=== PATIENT | female | born 1985 | race Hispanic/Latino ===

== ENCOUNTER 2017-04-24 09:11 | Emergency (ER) | payer BC, OTHER ==
[2017-04-24 09:11] VITALS: BMI 27.0
[2017-04-24 09:26] VITALS: TEMP 98.6; O2SAT 100
[2017-04-24 09:46] VITALS: BP 121/81; RESP 19
[2017-04-24] MEDS ORDERED: Sodium Chloride 0.9% 1,000 ML IV STA (10:25)
[2017-04-24 10:48] LABS: BASO # 0.1 K/uL (0.0-0.2); EOS # 0.2 K/uL (0.0-0.7); EOS % 2.7 % (0.0-4.0); HEMATOCRIT 39.9 % (34.0-47.0); LYMPH # 2.8 K/uL (1.0-4.3); LYMPH % 32.9 % (20.0-40.0); MEAN CELL VOLUME 95.4 fl (81.0-99.0); MEAN CORPUSCULAR HEMOGLOBIN 32.4 pg (27.0-31.0); MEAN CORPUSCULAR HGB CONC 33.9 g/dL (33.0-37.0); MEAN PLATELET VOLUME 7.9 fl (7.2-11.7); MONO # 0.8 K/uL (0.0-0.8); MONO % 9.3 % (0.0-10.0); NEUT # 4.5 K/uL (1.8-7.0); NEUT % 54.1 % (50.0-75.0); RED CELL DISTRIBUTION WIDTH 13.6 % (11.5-14.5); WHITE BLOOD COUNT 8.4 K/uL (4.8-10.8)
--- NOTE | 2017-04-24 10:49 | ED PDOC ---
HPI: Chest Pain Time Seen by Provider: 04/24/17 10:11 Chief Complaint (Nursing): Palpitations Chief Complaint (Provider): Palpitations History Per: Patient History/Exam Limitations: no limitations Onset/Duration Of Symptoms: Mins Current Symptoms Are (Timing): Better Additional History Per: Patient Additional Complaint(s): 31yo female, past medical history of SVT, PE, MTHFR coagulation disease, presents to ED for evaluation of palpitations and dizziness. 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 Patient additionally reports she has been taking lovenox 30mg daily as prescribed by Dr. Mccarthy. She denies any chest pain, headache and states currently her symptoms have improved. She offers no other medical complaints. Past Medical History Reviewed: Historical Data, Nursing Documentation, Vital Signs Vital Signs: Last Vital Signs Temp 98.6 F 04/24/17 09:24 Pulse 137 H 04/24/17 13:21 Resp 19 04/24/17 09:44 BP 121/81 04/24/17 09:44 Pulse Ox 100 04/24/17 13:21 - Medical History PMH: Pulmonary Embolism Other PMH: SVT - Surgical History Surgical History: No Surg Hx - Family History Family History: States: No Known Family Hx - Immunization History Hx Tetanus Toxoid Vaccination: Yes Hx Influenza Vaccination: Yes Hx Pneumococcal Vaccination: No - Home Medications Home Medications: Ambulatory Orders Medication Instructions Recorded Aspirin [[facility] Aspirin] 1 tab PO DAILY 07/31/15 Esomeprazole Magnesium [Nexium] 1 tab PO DAILY 07/31/15 - Allergies Allergies/Adverse Reactions: Allergies Allergy/AdvReac Type Severity Reaction Status Date / Time No Known Allergies Allergy Verified 04/24/17 09:23 MARIBELL Risk Score for UA/NSTEMI - MARIBELL Risk Score Age > 64: NO 3 or more CAD Risk Factors: NO Known CAD (Stenosis greater than 50%): NO Aspirin use in past 7 days: NO Severe Angina: NO EKG ST changes greater than 0.5mm: NO Positive Cardiac Marker: NO MARIBELL Score: 0 Risk %: 5% Wells Criteria for PE - Wells Criteria for Pulmonary Embolism Clinical Signs and Symptoms of DVT: No P.E is #1 Diagnosis, or Equally Likely: No Heart Rate >100: No Immobilization at least 3 days;Surgery previous 4 weeks: No Previous, objectively diagnosed PE or DVT: Yes Hemoptysis: No Malignancy w/treatment within 6 months, or palliative: No Total Score: 1.5 Review of Systems ROS Statement: Except As Marked, All Systems Reviewed And Found Negative Cardiovascular: Positive for: Palpitations. Negative for: Chest Pain Neurological: Positive for: Dizziness Physical Exam - Reviewed Nursing Documentation Reviewed: Yes Vital Signs Reviewed: Yes - Physical Exam Appears: Positive for: Non-toxic, No Acute Distress Head Exam: Positive for: ATRAUMATIC, NORMAL INSPECTION, NORMOCEPHALIC Skin: Positive for: Normal Color Eye Exam: Positive for: Normal appearance Neck: Positive for: Supple Cardiovascular/Chest: Positive for: Regular Rate, Rhythm, Tachycardia Respiratory: Positive for: Normal Breath Sounds. Negative for: Respiratory Distress Gastrointestinal/Abdominal: Positive for: Normal Exam Back: Positive for: Normal Inspection Extremity: Positive for: Normal ROM Neurologic/Psych: Positive for: Alert, Oriented. Negative for: Motor/Sensory Deficits - Laboratory Results Result Diagrams: 04/24/17 10:35 04/24/17 10:35 - ECG ECG: Positive for: Interpreted By Me, Viewed By Me ECG Rhythm: Positive for: Normal QRS, Normal ST Segment, Sinus Tachycardia. Negative for: ST/T Changes Rate: 137 O2 Sat by Pulse Oximetry: 100 (RA) Pulse Ox Interpretation: Normal Medical Decision Making Medical Decision Making: Time: 1024 Impression: Sinus tachycardia, palpitations Differential: Paroxsysmal SVT, unlikely PE since patient is on prophylactic regimen on lovenox and Sinus Tachycardia has now resolved Plan: -- EKG -- Labs -- IV Fluids Reassess Time: [address] mccarthy, patient's field sales associate who states if tachy resolved and patient is without complaints and is on prophylactic lovenox, unliekly it is PE Time: 1320 Patient without complaints; HR is 120 BPM which she states is baseline for her. Patient stable for discharge home, instructed to follow up with Dr. Mccarthy in 1- 2 days. Scribe Attestation: Documented by Grisel Roa acting as a scribe for Noe Rossi MD. Provider Attestation: All medical record entries made by the Scribe were at my direction and personally dictated by me. I have reviewed the chart and agree that the record accurately reflects my personal performance of the history, physical exam, medical decision making, and the department course for this patient. I have also personally directed, reviewed, and agree with the discharge instructions and disposition. Disposition - Clinical Impression Clinical Impression: Palpitations, Supraventricular tachycardia - Patient ED Disposition Is Patient to be Admitted: No Doctor Will See Patient In The: Office Counseled Patient/Family Regarding: Studies Performed, Diagnosis, Need For Followup - Disposition Referrals: Xiang Mccarthy MD [Family Provider] - Disposition: Routine/Home Disposition Time: 13:21 Condition: GOOD Additional Instructions: Return for worsening. Follow up with your PCP in 2-3 days. Instructions: Palpitations (ED)
[2017-04-24 10:57] LABS: BLOOD UREA NITROGEN 9 mg/dl (7-17); CALCIUM 9.2 mg/dL (8.4-10.2); CARBON DIOXIDE 22 mmol/L (22-30); CHLORIDE 101 mmol/L (98-107); GFR AFRICAN-AMERICAN > 60; GLUCOSE,RANDOM 96 mg/dL (65-105); POTASSIUM 3.5 MMOL/L (3.6-5.0); SODIUM 137 mmol/l (132-148)
[2017-04-24 11:03] VITALS: PULSE 137
[2017-04-24 12:45] LABS: PARTIAL THROMBOPLASTIN TIME 26.4 Seconds (25.6-37.1)
--- NOTE | 2017-04-25 09:58 | CARD ---
APPROVED REPORT EKG Measurement Heart [id number] IN [id number] <Conclusion> Sinus tachycardia ST & T wave abnormality, consider inferior ischemia Abnormal ECG
== END 2017-04-24 13:34 | disposition home or self-care (01) ==
LOC: H.ER 09:11
DX: I47.1 Supraventricular tachycardia (principal); R00.2 Palpitations; Z86.711 Personal history of pulmonary embolism; Z79.82 Long term (current) use of aspirin
CPT/HCPCS: 80048; 84484; 85025; 85610; 85730; 93005; 96360; 99284; J7040

== ENCOUNTER 2018-09-18 08:21 | Emergency (ER) | payer BC ==
[2018-09-18 08:41] VITALS: BMI 26.0
[2018-09-18 08:42] VITALS: TEMP 97.9
[2018-09-18 08:44] VITALS: RESP 17
[2018-09-18] MEDS ORDERED: Albuterol-Ipratrop 3 mg / 0.5 (3 ml) UD INH STA (09:09)
[2018-09-18] MEDS ORDERED: Albuterol-Ipratrop 3 mg / 0.5 (3 ml) UD ONE (09:19)
--- NOTE | 2018-09-18 09:44 | ED PDOC ---
HPI: SOB/CHF/COPD Time Seen by Provider: 09/18/18 09:00 Chief Complaint (Nursing): Respiratory Distress Chief Complaint (Provider): Respiratory Distress History Per: Patient History/Exam Limitations: no limitations Onset/Duration Of Symptoms: Days (x2) Current Symptoms Are (Timing): Still Present Additional Complaint(s): Patient is a 32 year old female with a past medical history of PE, who presents to the emergency department complaining of shortness of breath and cough. She was seen at urgent care x2 days ago due to worsening allergies. Patient went to urgent care complaining of similar symptoms and was given a nebulizer treatment and chest xray was taken. The chest xray came back normal and patient was discharged with allergy medications. Patient was seen by her PMD yesterday and was started on additional allergy medications including prednisone and z pack. However symptoms of shortness of breath and cough have been worsening. Patient has no previous history of asthma or wheezing. She went to work today and due to worsening symptoms, was sent to the ED. Patient has had a negative work up since her PE. She denies any fever, chest pain or leg swelling. PMD: Rafal Wick I Past Medical History Reviewed: Historical Data, Nursing Documentation, Vital Signs Vital Signs: Last Vital Signs Temp 97.9 F 09/18/18 08:42 Pulse 115 H 09/18/18 08:42 Resp 17 09/18/18 08:42 BP 139/99 H 09/18/18 08:42 Pulse Ox 100 09/18/18 08:42 - Medical History PMH: Pulmonary Embolism Denies: Asthma, HTN - Surgical History Surgical History: No Surg Hx - Family History Family History: States: Unknown Family Hx - Immunization History Hx Tetanus Toxoid Vaccination: Yes Hx Influenza Vaccination: Yes Hx Pneumococcal Vaccination: No - Home Medications Home Medications: Ambulatory Orders Medication Instructions Recorded Aspirin [[facility] [place] Aspirin EC] 1 tab PO DAILY 07/31/15 Esomeprazole Magnesium [Nexium] 1 tab PO DAILY 07/31/15 - Allergies Allergies/Adverse Reactions: Allergies Allergy/AdvReac Type Severity Reaction Status Date / Time No Known Allergies Allergy Verified 03/06/18 08:33 Review of Systems ROS Statement: Except As Marked, All Systems Reviewed And Found Negative Constitutional: Negative for: Fever Cardiovascular: Negative for: Chest Pain Respiratory: Positive for: Cough, Shortness of Breath Musculoskeletal: Negative for: Leg Pain (leg swelling) Physical Exam - Reviewed Nursing Documentation Reviewed: Yes Vital Signs Reviewed: Yes - Physical Exam Appears: Positive for: No Acute Distress, Uncomfortable Head Exam: Positive for: ATRAUMATIC, NORMOCEPHALIC Skin: Positive for: Normal Color, Warm, Dry Eye Exam: Positive for: Normal appearance, EOMI, PERRL ENT: Positive for: Other (congested) Neck: Positive for: Normal, Painless ROM, Supple Cardiovascular/Chest: Positive for: Regular Rate, Rhythm. Negative for: Murmur Respiratory: Positive for: Wheezing (bilaterally) Gastrointestinal/Abdominal: Positive for: Normal Exam, Soft. Negative for: Tenderness Back: Positive for: Normal Inspection. Negative for: L CVA Tenderness, R CVA Tenderness, Vertebral Tenderness Extremity: Positive for: Normal ROM. Negative for: Pedal Edema, Calf Tenderness (or swelling), Deformity Neurological/Psych: Positive for: Alert, Oriented - ECG O2 Sat by Pulse Oximetry: 100 (RA) Pulse Ox Interpretation: Normal Medical Decision Making Medical Decision Making: Time: 908 A/P: Work up for allergy triggered asthma. Patient is not responsive to 24-48 hours of PO allergy medications. Will give duonebs, Solu-MEDROL and reassess patient. --Albuterol 3ml INH --Solu-MEDROL 125 mg IVP --Peak flow Pre/Post tx --Of note, patient requesting to not have a full medical workup at this time because she believes the medicines need more time to take effect and due to previous medical work up being negative. Time: 1042 --Patient states she is feeling better and is requesting to go home. --Patient reports she already has a nebulizer at home that was prescribed by Dr. Wick. --She states she also has her allergy medication at home. --Patient states she will follow up with director of national sales this afternoon or early this morning. --She was instructed to return to the ED if her symptoms get worse. ------ Scribe Attestation: Documented by Benoit Ma, acting as a scribe Nikos Monzon MD. Provider Scribe Attestation: All medical record entries made by the Scribe were at my direction and personally dictated by me. I have reviewed the chart and agree that the record accurately reflects my personal performance of the history, physical exam, medical decision making, and the department course for this patient. I have also personally directed, reviewed, and agree with the discharge instructions and disposition. Disposition - Clinical Impression Clinical Impression: Respiratory distress, Seasonal allergies - Disposition Disposition Time: 10:42 Condition: IMPROVED Additional Instructions: Follow up with primary medical doctor as needed. Follow up with ENT/Staffing Consultant. Return to the emergency department if symptoms worsen or if new symptoms develop. Instructions: Seasonal Allergies (DC) Forms: [facility] (Romanian), [facility] School/Work Excuse
[2018-09-18 10:27] VITALS: BP 110/86; PULSE 90
[2018-09-18 13:38] VITALS: O2SAT 100
== END 2018-09-18 11:00 | disposition home or self-care (01) ==
LOC: H.ER 08:21
DX: R06.03 Acute respiratory distress (principal); J30.2 Other seasonal allergic rhinitis; Z86.711 Personal history of pulmonary embolism
CPT/HCPCS: 94640; 96374; 99283; J2930